=== PATIENT | female | born 1950 | race Caucasian/White ===

== ENCOUNTER 2016-08-29 18:47 | Inpatient (IN) | payer MEDICARE ==
--- NOTE | ~2016-08-29 | TOC ---
Unit #: [id number] #: [id number] Patient: DEYVI CAMACHO [id number] [address] [place], [place] [address] [id number] I MR#: [id number] NAME: DEYVI CAMACHO ROOM: 461 Age: 66 Sex: F Admission Date: 08/29/2016 : 1950 Attending Physician: Anne Novak M.D. Primary Care Physician: No Primary Care Physician TRANSFER OF CARE SUMMARY ANTICIPATED DATE OF DISCHARGE 09/02/2016 PRINCIPAL DIAGNOSES 1. Left femoral head fracture, status post screw fixation. 2. Acute post blood loss anemia. 3. Osteoporosis. 4. Polycythemia vera with prior history of strokes maintained on hydria. 5. Leukopenia, hydria induced. 6. Opiate induced nausea and vomiting. 7. Depression. CONSULTANTS Dr. Johnson, orthopedic surgery. PROCEDURE 1. Left femoral neck screw fixation on 08/31/2016. 2. Chest x-ray on 08/29/2016 with no acute findings. 3. X-ray of left hip on 08/29/2016 with impacted mildly displaced fracture of the subcapital region of left femoral head with irregularity along the left femoral head and neck, osteopenia is also noted. 4. CT of the head without contrast on 08/29/2016 with no evidence of intracranial abnormality, encephalomalacic changes of the right temporal lobe, extending to the parietal occipital region with peripheral calcification is noted. Hypodensity relating to encephalomalacic change in gliosis are noted in left parietal lobe. CLINICAL HISTORY AND HOSPITAL COURSE Ms. Camacho is a nice 66-year-old female who presents to the emergency department with left hip pain after a fall at home. X-rays in the emergency department revealed a left femoral head and neck fracture and patient was subsequently admitted. Dr. Johnson was consulted and patient underwent screw fixation of the hip on 08/31/2016. Postoperatively she has done well. She has had a drop in hemoglobin postoperatively from 9.6 to 7.9. Will continue to follow hemoglobin closely. Patient has a history of polycythemia vera. Will continue her on hydria. This hydria is also resulted in a chronic leukopenia that can simply be monitored. Patient's blood pressures remain stable. Unit #: [id number] #: [id number] Patient: DEYVI CAMACHO I anticipate discharge to rehab on 09/02/2016 assuming bed is available. Further hospital course to be dictated as an addendum. Dictated by... Wally Day/cecelia TD: 09/01/2016 08:42 JOB #: [id number] TRANSFER OF CARE SUMMARY Page 1 of 1 X Anne Novak MD X TRANSFER OF CARE SUMMARY
--- NOTE | ~2016-08-29 | CT71 ---
[facility] A Service of [facility] & [facility] RADIOLOGY TEXT RESULTS PATIENT: DEYVI ASHER LOCATION: [facility] 461-01 : [birth year] UNIT #: [id number] AGE: [address]: Anne Novak MD SEX: F ORDER DR: [id number] [facility] [address] [place], [place] [address] [id number] I MR#: [id number] Acc #: [id number] NAME: DEYVI ASHER : 1950 SEX: F STUDY DATE/TIME: 08/29/2016 21:17 UNIT: CEDOF ROOM: 58860 STUDY DESCRIPTION: CT Head Wo Contrast Attending Physician: Kristen Multani M.D. Ordering Physician: Zhen Raya M.D. Primary Care Physician: No Primary Care Physician MEDICAL IMAGING REPORT This report is preliminary unless electronic signature is present EXAM CT head without contrast, dated 08/29/16. COMPARISON None. HISTORY Lightheadedness and fall today. No loss of consciousness. TECHNIQUE This CT exam was performed with one or more of the following radiation dose reduction techniques: automatic exposure control, adjustment of mA and/or kV according to patient size, and iterative reconstruction. FINDINGS CT of the head was obtained without contrast in the axial plane as per the protocol. Encephalomalacic changes are noted in the right temporal lobe extending towards the nearby right parietooccipital lobe. There are some peripheral cortical based calcifications in this region of encephalomalacic change. Ex vacuo dilatation of the nearby atrium and posterior horn of the right lateral ventricle are noted due to volume loss. Patchy hypodensity is also seen in the left parietal lobe involving the cortex and underlying white matter. Small hypodensity is suspected in the right caudate body extending towards the anterior limb of the right internal capsule with a tiny 1 in the left thalamus. No associated edema. There is no acute intracranial hemorrhage, hydrocephalus or midline shift. Calcification of the transverse ligament is seen. There is small nodular mucosal thickening in the floor of the right maxillary antrum. Right frontal sinus is aplastic. Bilateral mastoid air cells are well-aerated. Imaged orbits with the ocular structures do not demonstrate any significant abnormality. Fatty bilateral parotid gland infiltration is seen. There is an oval large 2.5 x 1.9 cm mass with a Hounsfield unit of 19 in the superficial left parotid and adjacent subcutaneous fat extending [facility] A Service of [facility] & [facility] RADIOLOGY TEXT RESULTS PATIENT: DEYVI ASHER LOCATION: [facility] 461- : [birth year] UNIT #: [id number] AGE: [address]: Anne Novak MD SEX: F ORDER DR: to the skin. It is either abutting the left parotid gland or probably slightly involves the gland. It's center is in the subcutaneous region along the anterior/inferior aspect of the left external ear. The lesion is incompletely characterized on the current study as it is not fully included. S-shaped nasal septal deviation is seen. IMPRESSION 1. No evidence of acute intracranial abnormality. 2. Encephalomalacic changes are noted in the right temporal lobe extending to the adjacent to the parietooccipital region with some peripheral calcification. It is probably relating to old right middle cerebral artery distribution stroke. 3. Hypodensity relating to encephalomalacic change and gliosis are noted in the left parietal lobe. Smaller similarly hypodense lesions are noted in the left thalamus and right caudate body extending towards the anterior limb of the right internal capsule. These are all likely age indeterminant or lacunar infarcts probably chronic or related to mild chronic microvascular ischemic change. 4. There is a 2.5 x 1.9 cm mass noted in the anterior and inferior aspect of the left external ear predominantly in the subcutaneous fat extending to the skin laterally and probably abuts the left superficial parotid gland. It could also partly involves the gland or arise from the gland, given the significant proximity between the lesion in the parotid. It is incompletely characterized on the current study. Left parotid mass as well as subcutaneous soft tissue tumors are in the differential consideration. It does not appear to be infected given the lack of adjacent acute inflammation. Correlate with history. Dictated by... Arley Alejandre M.D. THIS IS AN ELECTRONICALLY VERIFIED REPORT Arley Alejandre M.D. at 08/31/2016 6:04 PM CPR/jt TD: 08/29/2016 23:32 JOB #: [id number] MEDICAL IMAGING REPORT Page 1 of 1 COPY
--- NOTE | ~2016-08-29 | CR150 ---
[facility] A Service of [facility] RADIOLOGY TEXT RESULTS PATIENT: DEYVI ASHER LOCATION: [place] [address] : [birth year] UNIT #: [id number] AGE: [address]: Anne Novak MD SEX: F ORDER DR: [id number] [facility] [address] [place], [place] [address] [id number] E MR#: [id number] Acc #: [id number] NAME: DEYVI ASHER : 1950 SEX: F STUDY DATE/TIME: 08/29/2016 19:57 UNIT: [facility] ROOM: STUDY DESCRIPTION: CR Hip Min 2 Views Lt Attending Physician: Zhen Raya M.D. Ordering Physician: Zhen Raya M.D. Primary Care Physician: No Primary Care Physician MEDICAL IMAGING REPORT This report is preliminary unless electronic signature is present EXAM Left hip series, dated 08/29/16. COMPARISON None. HISTORY Lightheadedness, shortness of air with activity and left hip pain post fall on 08/29/16. FINDINGS Two views of the left hip were obtained. There appears to be an impacted mildly displaced fracture in the subcapital region of the left femoral head with irregularity along the left femoral head and neck cortex with some displacement. Correlate clinically and depending on the need CT or MRI can be considered for management purposes. Diffuse bony osteopenia is suspected particularly based on the frontal view. Degenerative changes are in the lower lumbar spine and probably to a lesser degree in bilateral SI joints. Calcifications are noted in the pelvic soft tissue suggestive of phleboliths. There is mild stool burden in the colon. Dictated by... Arley Alejandre M.D. THIS IS AN ELECTRONICALLY VERIFIED REPORT Arley Alejandre M.D. at 08/31/2016 6:03 PM CPR/jt TD: 08/29/2016 22:57 JOB #: [id number] [facility] A Service of [facility] RADIOLOGY TEXT RESULTS PATIENT: DEYVI ASHER LOCATION: [facility] 461- : 49 UNIT #: [id number] AGE: [address]: Anne Novak MD SEX: F ORDER DR: MEDICAL IMAGING REPORT Page 1 of 1 COPY
--- NOTE | ~2016-08-29 | DS ---
Unit #: [id number] #: [id number] Patient: DEYVI ASHER [id number] [address] [place], [place] [address] [id number] I MR#: [id number] NAME: DEYVI ASHER ROOM: 461 Age: 66 Sex: F Admission Date: 08/29/2016 : 1950 Discharge Date: 09/02/2016 Attending Physician: Anne Novak M.D. Primary Care Physician: Primary Care Physician No DISCHARGE SUMMARY This is an addendum to the previous discharge summary dictated by Dr. Novak yesterday. The patient remains stable and there is a bed available for rehab, therefore, she will be transferred. On lab work today, revealed WBC of 2.8, hemoglobin was 8.2, and platelet count is 158. PHYSICAL EXAMINATION Today, on physical examination, the patient remains comfortable. Her vital signs reveal a temperature of 98.1, pulse is 78 per minute, respiratory rate is 18 per minute, blood pressure 104/52. HEENT EXAMINATION: Reveals no conjunctival congestion, sclerae is nonicteric. NECK: Supple. Trachea is central. RESPIRATORY EXAMINATION: Revealed breath sounds equal bilaterally. There are no wheezes or crackles. HEART: Regular rate and rhythm, S1 and S2. ABDOMEN: Soft, nontender, bowel sounds are present in all four quadrants. NEUROLOGIC: The patient is alert to person, place, and time. Power is 5/5 bilaterally. Sensations are grossly intact. SKIN: Warm and dry. RECOMMENDATIONS ON DISCHARGE 1. Condition is stable. 2. Activity is as tolerated. MEDICATIONS Are as per medication reconciliation form and include: 1. Paxil 20 mg p.o. daily 2. Xarelto 10 mg p.o. daily for DVT prophylaxis 3. Hydroxyurea 1000 mg p.o. q.48h 4. Norvasc 5 mg p.o. daily 5. Colace 100 mg p.o. daily 6. Milk of magnesia 30 mL p.o. p.r.n. constipation 7. MiraLAX 17 grams p.o. daily 8. Percocet 5 mg 1-2 tablets q.4h p.r.n. pain, #30 tablets were written 9. Calcium with vitamin D 500 mg p.o. b.i.d. DISPOSITION The patient will be transferred to rehab. NOTE Unit #: [id number] #: [id number] Patient: DEYVI ASHER Please note the patient has leukopenia secondary to hydroxyurea, therefore, monitor the patient's WBC closely by repeating CBC in one week. The patient should follow up with her svp research and strategic analysis if her leukopenia does not improve. Dictated by... Wally Mcconnell TD: 09/02/2016 08:42 JOB #: [id number] DISCHARGE SUMMARY Page 1 of 1 X Cortes Cervantes MD X DISCHARGE SUMMARY
--- NOTE | ~2016-08-29 | EKG ---
PATIENT: DEYVI ASHER UNIT #: [id number] Ventricular Rate: 71 BPM Atrial Rate: 71 BPM P-R Interval: 144 ms QRS Duration: 92 ms Q-T Interval: 428 ms QTC Calculation(Bezet): 465 ms P [place]: 21 degrees Calculated R [place]: 15 degrees Calculated T [place]: 67 degrees Diagnosis Line: Sinus rhythm with Premature atrial complexes Diagnosis Line: Low voltage QRS Diagnosis Line: Borderline ECG Diagnosis Line: No previous ECGs available Diagnosis Line: Confirmed by LEONA BISWAS MD ([id number]) on 08/30/2016 Diagnosis Line: 7:40:15 AM INTERPRETING MD: TRUE VELÁSQUEZ
--- NOTE | ~2016-08-29 | CO ---
Unit #: [id number] #: [id number] Patient: DEYVI ASHER [id number] [address] [address] [id number] I MR#: [id number] NAME: DEYVI ASHER ROOM: 460 Age: 66 Sex: F Admission Date: 08/29/2016 : 1950 Attending Physician: Anne Novak M.D. Primary Care Physician: Sobia Primary Care Physician Consultation Date: 08/30/2016 CONSULTATION REPORT PREOPERATIVE DIAGNOSIS Left hip injury. HISTORY OF PRESENT ILLNESS The patient is a 66-year-old female who fell at home sustaining a left hip injury. She was taken to the emergency room where radiographs demonstrated a femoral neck fracture. Orthopedic consultation is therefore requested. PAST MEDICAL HISTORY Remarkable for: 1. Polycythemia vera. 2. Hypertension. 3. Depression. 4. Stroke with resultant right arm hemiparesis. HOME MEDICATIONS 1. Hydroxyurea. 2. Norvasc. 3. Paxil. ALLERGIES None. SOCIAL HISTORY The patient is a one half pack per day smoker. She denies alcohol use. FAMILY HISTORY Coronary artery disease. REVIEW OF SYSTEMS Unremarkable for any other associated injuries. PHYSICAL EXAMINATION Height 5 foot 8, weight 154 pounds. In general, this is a well developed, well nourished female in no acute distress. Examination of the left hip shows tenderness to palpation. She has pain with any range of motion of the left hip. She is able to flex and extend her ankle and toes. Sensation is normal in the left foot. Pulses are intact. AP and lateral views of the left hip demonstrate a femoral neck subcapital fracture which is compressed into valgus. IMPRESSION Unit #: [id number] #: [id number] Patient: DEYVI ASHER Left femoral neck fracture, Garden type I. PLAN The patient will be taken to the operating room tomorrow for percutaneous screw fixation. This procedure was described in detail along with risks of bleeding, infection, nerve damage, need for further surgery in the future to include hip replacement, nonunion, malunion, avascular necrosis, deep venous thrombosis, pulmonary embolism and anesthetic complications. She understands she will be unlimited weight bearing for about six to eight weeks postoperatively. Dictated byTeetee Johnson M.D. RTH/sherie TD: 08/31/2016 05:14 JOB #: [id number] CONSULTATION REPORT Page 1 of 1 X Cindy Johnson MD CONSULTATION REPORT
--- NOTE | ~2016-08-29 | OR ---
Unit #: [id number] #: [id number] Patient: DEYVI ASHER [id number] [address] [place], [place] [address] [id number] I MR#: [id number] NAME: DEYVI ASHER ROOM: 461 Date of Procedure: 08/31/2016 Admission Date: 08/29/2016 Surgeon: Cristiano Johnson M.D. : 1950 Attending Physician: Anne Novak M.D. OPERATIVE REPORT PREOPERATIVE DIAGNOSIS Left femoral neck fracture. POSTOPERATIVE DIAGNOSIS Left femoral neck fracture. PROCEDURE PERFORMED Left percutaneous screw fixation of femoral neck fracture (63388). ASSISTANTS Shankar and Kyle. ANESTHESIA General. INDICATIONS FOR SURGERY The patient is a 66-year-old female, who fell at home sustaining a left hip fracture. Radiographs show a compressed Garden 1 fracture of the subcapital femoral neck region. She is therefore to undergo percutaneous screw fixation. DESCRIPTION OF PROCEDURE The patient was taken to the operating room and placed in supine position. General anesthetic was induced. She was placed in a fracture table. The left hip was marked preoperatively and was identified as the correct operative location during the time-out procedure. The IV antibiotic protocol was followed. The left hip was then prepped and draped in the usual sterile fashion. Under C-arm fluoroscopic control, a 3 cm incision was made over the lateral hip. Three guide pins were placed into the femoral neck and femoral head. One was placed inferiorly and one was placed in the central portion in a center-center position. An additional screw was placed in the inferior half of the femoral neck. OrthoHelix 7.0 mm diameter cannulated screws were then placed over the guide pins and tightened. Excellent fixation was achieved. The wound was irrigated. Deep tissues were closed with 2-0 Vicryl. Skin was closed with skin krystin. Xeroform gauze, dressing, and sponges were taped into place. The patient was then transported to the recovery room in stable condition. ESTIMATED BLOOD LOSS Minimal. Unit #: [id number] #: [id number] Patient: DEYVI ASHER COMPLICATIONS None. SPECIMENS None. TOURNIQUET TIME Zero. PLAN The patient will be touchdown weightbearing for 6 weeks. Dictated by... Wally Piña/chantel TD: 09/01/2016 03:46 JOB #: [id number] OPERATIVE REPORT Page 1 of 1 X Cindy Johnson MD PROCEDURE OPERATIVE NOTE
--- NOTE | ~2016-08-29 | CR150 ---
[facility] A Service of [facility] & [facility] RADIOLOGY TEXT RESULTS PATIENT: DEYVI ASHER LOCATION: [place] [address]- : [birth year] UNIT #: [id number] AGE: [address]: Anne Novak MD SEX: F ORDER DR: [id number] [facility] [address] [place], [place] [address] [id number] I MR#: [id number] Acc #: [id number] NAME: DEYVI ASHER : 1950 SEX: F STUDY DATE/TIME: 08/31/2016 13:57 UNIT: [facility] ROOM: [facility] STUDY DESCRIPTION: CR Hip Min 2 Views Lt Attending Physician: Anne Novak M.D. Ordering Physician: Cristiano Johnson M.D. Primary Care Physician: No Primary Care Physician MEDICAL IMAGING REPORT This report is preliminary unless electronic signature is present EXAMINATION Fluoroscopy after 1 hour DATE 08/31/2016 HISTORY Left hip pinning. History of left femoral neck fracture. COMPARISON AP pelvis and frog view of the left hip 08/29/2016. FINDINGS 2 spot fluoroscopic images were obtained of left hip during open reduction internal fixation procedure performed by Dr. oJhnson. Fluoroscopy time 1 minute 36 seconds is documented. Recannulated screws are seen stabilizing a nondisplaced fracture of the left femoral neck in satisfactory alignment for healing. The hip appears appropriately located. Please refer to the operative report for additional findings and recommendations. Dictated by... Julieta Swan M.D. THIS IS AN ELECTRONICALLY VERIFIED REPORT Julieta Swan M.D. at 09/01/2016 6:13 AM LEANA/pop TD: 08/31/2016 18:12 JOB #: [id number] MEDICAL IMAGING REPORT Page 1 of 1 COPY
--- NOTE | ~2016-08-29 | CR72 ---
[facility] A Service of [facility] & [facility] RADIOLOGY TEXT RESULTS PATIENT: DEYVI ASHER LOCATION: [facility] : [birth year] UNIT #: [id number] AGE: [address]: Zhen Raya MD SEX: F ORDER DR: [id number] [facility] [address] [place], [place] [address] [id number] E MR#: [id number] Acc #: [id number] NAME: DEYVI ASHER : 1950 SEX: F STUDY DATE/TIME: 08/29/2016 19:54 UNIT: [facility] ROOM: STUDY DESCRIPTION: CR Chest Single View Portable Attending Physician: Zhen Raya M.D. Ordering Physician: Zhen Raya M.D. Primary Care Physician: Primary Care Physician No MEDICAL IMAGING REPORT This report is preliminary unless electronic signature is present EXAM Single view of the chest, 08/29/2016 COMPARISON None. HISTORY Lightheadedness, shortness of air with activity, left hip pain from 08/29/2016 post fall. FINDINGS Single view of the chest was obtained. No acute cardiopulmonary disease. There is no patchy dense consolidation, pleural effusion or pneumothorax. Heart, mediastinum and bones appear to be grossly unremarkable. Dictated by... Arley Alejandre M.D. THIS IS AN ELECTRONICALLY VERIFIED REPORT Arley Alejandre M.D. at 08/29/2016 10:59 PM CPR/ljd TD: 08/29/2016 22:56 JOB #: [id number] MEDICAL IMAGING REPORT Page 1 of 1 COPY
--- NOTE | ~2016-08-29 | HP ---
Unit #: [id number] #: [id number] Patient: DEYVI ASHER [id number] [address] [place], [place] [address] [id number] MR#: [id number] NAME: DEYVI ASHER ROOM: [address] Age: 66 Sex: F Admission Date: 08/29/2016 : 1950 Attending Physician: Kristen Multani M.D. Primary Care Physician: No Primary Care Physician HISTORY AND PHYSICAL CHIEF COMPLAINT Left hip fracture. HISTORY This pleasant 66-year-old female with hypertension, polycythemia vera resulting in previous CVAs, is admitted for left hip fracture. This afternoon, the patient lost her balance and fell onto her left hip. This was a witnessed fall. She was unable to get up due to severe pain. She was brought to this emergency department tonight where x-rays demonstrate a fracture in the subcapital region of the left femoral head. The patient was given 0.5 mg of IV Dilaudid along with Zofran with improvement of her pain. Denies history of heart disease, states that she is able to climb stairs without shortness of breath or chest pain. PAST MEDICAL HISTORY 1. Hypertension. 2. Depression. 3. Previous CVAs secondary to polycythemia vera. 4. Polycythemia vera treated with hydroxyurea and previously required phlebotomies. ALLERGIES None. HOME MEDICATIONS 1. Hydroxyurea 500 mg, two tablets in the evening alternating with three tablets in the evening. 2. Norvasc 5 mg daily. 3. Paxil 20 mg daily. FAMILY HISTORY CAD in her father in his 60s. SOCIAL HISTORY The patient lives with her sister. She smokes one half pack per day of tobacco, does not drink alcohol. REVIEW OF SYSTEMS Notable for left hip pain following a fall, hypertension, depression, previous CVAs, tobacco abuse, polycythemia vera. The patient has a longstanding mass in the angle of her left jaw which is unchanged. All other systems were reviewed and are otherwise negative. Unit #: [id number] #: [id number] Patient: DEYVI ASHER PHYSICAL EXAMINATION GENERAL APPEARANCE: Very pleasant 66-year-old female, currently in no acute distress. VITAL SIGNS: Temperature 97.5, pulse 86, respirations 25, blood pressure 144/75, O2 saturation is 100% on room air. HEENT: Eyes PERRLA. Extraocular muscles are intact. Pharynx is benign. There is a somewhat firm mass at the angle of the left jaw near the left parotic gland. According to the patient, this has been present for multiple years and is unchanged. Otherwise, the neck is supple without adenopathy or thyromegaly. No carotid bruits. CHEST: Clear. CARDIAC: Normal S1 and S2 without murmur. ABDOMEN: Bowel sounds are present. No hepatosplenomegaly, tenderness or masses. EXTREMITIES: Without clubbing, cyanosis or edema. Pedal pulses are present but diminished. Left leg is slightly internally rotated. NEUROLOGIC: The patient is awake, alert, oriented. Her cranial nerves look to be intact. She does have resting tremor, particularly of the mouth. She is able to move all extremities. DIAGNOSTIC STUDIES LABORATORY: Admission labs - hematocrit 33.2, white blood count 3.7, normal platelet count. Cardiac enzymes are negative. SMA-12 - normal. Urinalysis is negative. IMAGING: Chest x-ray - no acute disease. Head CT shows previous CVAs. Please see dictation. Also, mass-like versus subcutaneous soft tissue tumor around the angle of the left jaw. X-ray of the left hip shows a mildly displaced fracture in the subcapital region of the left femoral head. CARDIOVASCULAR: EKG - normal sinus rhythm, rate 70 with APCs noted. Q noted in lead III. ASSESSMENT 1. Left hip fracture following a mechanical fall. 2. Prior CVAs secondary to polycythemia vera. 3. Polycythemia vera, on hydroxyurea. 4. Essential hypertension. 5. Depression. 6. Tobacco abuse. 7. Firm mass at the angle of the left jaw which has been stable for many years, according to the patient. PLANS 1. IV fluids and supportive treatment. 2. The patient is medically cleared for surgery. 3. Orthopedic surgeon to see in the morning. 4. DVT prophylaxis. 5. Smoking cessation counseling. Unit #: [id number] #: [id number] Patient: DEYVI ASHER Dictated by Kristen Multani M.D. AML/df TD: 08/30/2016 05:01 JOB #: [id number] HISTORY AND PHYSICAL Page 1 of 1 X Kristen Multani MD HISTORY AND PHYSICAL
[2016-08-29 19:56] LABS: URINE SOURCE CLEAN CATCH
[2016-08-29 20:00] LABS: URINE APPEARANCE CLEAR; URINE BILIRUBIN NEG (NEG); URINE BLOOD NEG (NEG); URINE COLOR YELLOW; URINE GLUCOSE NEG (NEG); URINE KETONE NEG (NEG); URINE LEUKOCYTE ESTERASE NEG (NEG); URINE NITRATE NEG (NEG); URINE PROTEIN NEG (NEG); URINE SPECIFIC GRAVITY 1.016 (1.003-1.035)
[2016-08-29 20:03] LABS: BASOPHIL% 0.8 % (0-2.5); EOSINOPHIL% 1.2 % (0.0-7.0); HEMATOCRIT 33.2 % (35.0-45.0); LYMPHOCYTE# 0.9 X10e3 (1.0-3.5); LYMPHOCYTE% 24.6 % (17.0-45.0); MEAN CELL VOLUME 98.3 FL (83-96); MEAN CORPUSCULAR HEMOGLOBIN 32.6 PG (28-34); MEAN CORPUSCULAR HGB CONC 33.1 g/dL (30-36); MONOCYTE# 0.2 X10e3 (0-1.0); MONOCYTE% 5.4 % (3.0-12.0); NEUTROPHIL# 2.5 X10e3 (1.5-7.1); PLATELET COUNT 240 X10e3 (140-420); RED BLOOD COUNT 3.38 X10e (3.90-5.30); WHITE BLOOD COUNT 3.7 X10e3 (4.0-10.5)
[2016-08-29 20:04] LABS: DIFF IND YES
[2016-08-29 20:07] LABS: CULTURE INDICATED? NO
[2016-08-29 20:08] LABS: POC - CKMB 2.1 ng/mL (0.0-7.9); POC - TROPONIN <0.05 ng/mL (<=0.05)
[2016-08-29 20:21] LABS: OVALOCYTES PRESENT; PLATELET ESTIMATE NORMAL (NORMAL)
[2016-08-29 20:23] LABS: ALBUMIN SERUM 4.1 g/dL (3.5-5.0); BILIRUBIN, DIRECT 0.1 mg/dL (0.0-0.2); BILIRUBIN,INDIRECT 0.6 mg/dL (0.0-0.9); BILIRUBIN,TOTAL 0.7 mg/dL (0.2-2.0); BUN/CREATININE RATIO 22.85; CALCIUM SERUM 9.1 mg/dL (8.4-10.2); CREATININE SERUM 0.7 mg/dL (0.6-1.4); GLOM FILT RATE Estimated 89.7 mL/min (>60); POTASSIUM 3.9 mmol/L (3.5-5.1); PROTEIN TOTAL SERUM 6.9 g/dL (6.0-8.3)
[2016-08-29] MEDS ORDERED: HYDREA500 MG PO (21:27)
[2016-08-29] MEDS ORDERED: NORVASC PO (21:27)
[2016-08-29] MEDS ORDERED: PAXIL PO (21:27)
[2016-08-30 03:23] LABS: BASOPHIL% 0.5 % (0-2.5); EOSINOPHIL% 1.1 % (0.0-7.0); HEMATOCRIT 29.7 % (35.0-45.0); HEMOGLOBIN 9.9 gm/dL (12.0-16.0); LYMPHOCYTE# 1.1 X10e3 (1.0-3.5); LYMPHOCYTE% 33.4 % (17.0-45.0); MEAN CORPUSCULAR HEMOGLOBIN 33.3 PG (28-34); MEAN CORPUSCULAR HGB CONC 33.2 g/dL (30-36); MEAN PLATELET VOLUME 8.3 FL (6.5-11.5); MONOCYTE# 0.3 X10e3 (0-1.0); MONOCYTE% 7.8 % (3.0-12.0); NEUTROPHIL# 1.9 X10e3 (1.5-7.1); NEUTROPHIL% 57.2 % (40-75); PLATELET COUNT 222 X10e3 (140-420); RED BLOOD COUNT 2.97 X10e (3.90-5.30); RED CELL DISTRIBUTION WIDTH 26.3 % (11.0-15.5); WHITE BLOOD COUNT 3.3 X10e3 (4.0-10.5)
[2016-08-30 03:24] LABS: DIFF IND YES
[2016-08-30 03:39] LABS: ANISOCYTOSIS MOD; DIFFERENTIAL COMMENT FEWGIANTPLTS; PLATELET ESTIMATE NORMAL (NORMAL)
[2016-08-30 03:40] LABS: CALCIUM SERUM 8.5 mg/dL (8.4-10.2); CREATININE SERUM 0.7 mg/dL (0.6-1.4); GLOM FILT RATE Estimated 89.7 mL/min (>60); POTASSIUM 4.3 mmol/L (3.5-5.1)
[2016-08-30 03:42] LABS: ELLIPTOCYTES PRESENT; HYPOCHROMIA SL; OVALOCYTES PRESENT; TARGET CELLS SL
[2016-08-30 20:22] LABS: PROTHROMBIN TIME (PATIENT) 11.2 SECONDS (10.0-11.7)
[2016-08-31 03:35] LABS: BASOPHIL% 0.6 % (0-2.5); EOSINOPHIL% 1.2 % (0.0-7.0); HEMATOCRIT 28.8 % (35.0-45.0); HEMOGLOBIN 9.6 gm/dL (12.0-16.0); LYMPHOCYTE# 0.7 X10e3 (1.0-3.5); LYMPHOCYTE% 21.4 % (17.0-45.0); MEAN CELL VOLUME 100.6 FL (83-96); MEAN CORPUSCULAR HEMOGLOBIN 33.6 PG (28-34); MEAN CORPUSCULAR HGB CONC 33.4 g/dL (30-36); MEAN PLATELET VOLUME 8.3 FL (6.5-11.5); MONOCYTE# 0.2 X10e3 (0-1.0); MONOCYTE% 7.7 % (3.0-12.0); NEUTROPHIL# 2.2 X10e3 (1.5-7.1); NEUTROPHIL% 69.1 % (40-75); PLATELET COUNT 180 X10e3 (140-420); RED BLOOD COUNT 2.86 X10e (3.90-5.30); RED CELL DISTRIBUTION WIDTH 25.7 % (11.0-15.5); WHITE BLOOD COUNT 3.1 X10e3 (4.0-10.5)
[2016-08-31 03:36] LABS: DIFF IND NO
[2016-08-31 03:54] LABS: BUN/CREATININE RATIO 18.33; CALCIUM SERUM 8.4 mg/dL (8.4-10.2); CREATININE SERUM 0.6 mg/dL (0.6-1.4); GLOM FILT RATE Estimated 94.3 mL/min (>60); POTASSIUM 3.5 mmol/L (3.5-5.1)
[2016-09-01 01:57] LABS: BASOPHIL% 0.4 % (0-2.5); EOSINOPHIL% 1.2 % (0.0-7.0); HEMATOCRIT 23.9 % (35.0-45.0); HEMOGLOBIN 7.9 gm/dL (12.0-16.0); LYMPHOCYTE# 0.8 X10e3 (1.0-3.5); LYMPHOCYTE% 31.7 % (17.0-45.0); MEAN CELL VOLUME 101.1 FL (83-96); MEAN CORPUSCULAR HEMOGLOBIN 33.4 PG (28-34); MEAN CORPUSCULAR HGB CONC 33.1 g/dL (30-36); MEAN PLATELET VOLUME 8.7 FL (6.5-11.5); MONOCYTE# 0.2 X10e3 (0-1.0); MONOCYTE% 6.7 % (3.0-12.0); NEUTROPHIL# 1.5 X10e3 (1.5-7.1); PLATELET COUNT 151 X10e3 (140-420); RED BLOOD COUNT 2.37 X10e (3.90-5.30); RED CELL DISTRIBUTION WIDTH 26.1 % (11.0-15.5); WHITE BLOOD COUNT 2.5 X10e3 (4.0-10.5)
[2016-09-01 01:58] LABS: DIFF IND YES
[2016-09-01 02:11] LABS: BUN/CREATININE RATIO 18.33; CALCIUM SERUM 8.1 mg/dL (8.4-10.2); CREATININE SERUM 0.6 mg/dL (0.6-1.4); GLOM FILT RATE Estimated 94.3 mL/min (>60); POTASSIUM 3.5 mmol/L (3.5-5.1)
[2016-09-01 02:33] LABS: NUCLEATED RED BLOOD CELL 1 /100 (0)
[2016-09-01 02:34] LABS: HYPOCHROMIA MOD; PLATELET ESTIMATE DECREASED (NORMAL)
[2016-09-02 03:08] LABS: HEMATOCRIT 24.7 % (35.0-45.0); HEMOGLOBIN 8.2 gm/dL (12.0-16.0); MEAN CELL VOLUME 101.9 FL (83-96); MEAN CORPUSCULAR HEMOGLOBIN 33.7 PG (28-34); MEAN CORPUSCULAR HGB CONC 33.1 g/dL (30-36); MEAN PLATELET VOLUME 8.9 FL (6.5-11.5); RED BLOOD COUNT 2.42 X10e (3.90-5.30); WHITE BLOOD COUNT 2.8 X10e3 (4.0-10.5)
== END 2016-09-02 17:48 | DRG 481 ==
LOC: CED 18:47 → CEDOF 22:40 → C4B 22:51 → CEDOF 22:51 → CED 22:51 → CEDOF 08-30 07:35 → C4B 08-30 13:00 → CEDOF 08-30 13:00 → C4B 08-30 13:00 → C4C 08-31 15:46
PROVIDERS: Emergency Medicine; Internal Medicine; Orthopaedic Surgery
PROC: 0QH Lower Bones, Insertion (ICD-10-PCS; principal; 2016-08-31 12:30)
DX: S72.012A Unspecified intracapsular fracture of left femur, initial encounter for closed fracture (principal); I69.351 Hemiplegia and hemiparesis following cerebral infarction affecting right dominant side; D62 Acute posthemorrhagic anemia; F32.9 Major depressive disorder, single episode, unspecified; I10 Essential (primary) hypertension; D45 Polycythemia vera; Z82.3 Family history of stroke; Z82.49 Family history of ischemic heart disease and other diseases of the circulatory system; F17.210 Nicotine dependence, cigarettes, uncomplicated; M81.0 Age-related osteoporosis without current pathological fracture; D72.819 Decreased white blood cell count, unspecified; R11.2 Nausea with vomiting, unspecified; T40.605A Adverse effect of unspecified narcotics, initial encounter
CPT/HCPCS: 36415; 51702; 70450; 71010; 73502; 76000; 80048; 80076; 81003; 82553; 84443; 84484; 85025; 85027; 85610; 86850; 86900; 86901; 86923; 93005; 94760; 96374; 96375; 97110; 97116; 97161; 97530; 99285; C1713; G8978-GP; G8979-GP; J0690; J1170; J2250; J2270; J2405; J2550; J3010